=== PATIENT | female | born 1955 | race Caucasian/White ===

== ENCOUNTER 2017-12-19 19:05 | Emergency (ER) | payer OTHER ==
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
[2017-12-19 19:35] LABS: PLATELET COUNT, AUTOMATED 235 K/uL (150-450)
[2017-12-19 19:47] LABS: INR 1.06
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
[2017-12-19] MEDS ORDERED: fentaNYL CITR 100 MCG/2 ML AMP IVP ONE ×2 (20:35→21:25)
[2017-12-19 22:30] VITALS: BP 104/57
[2017-12-19] MEDS ORDERED: APAP/HYDROCODONE 325/10 TAB PO ONE (23:25)
[2017-12-19] MEDS ORDERED: KETOROLAC 30 MG/ML VIAL IVP ONE (23:50)
[2017-12-20] MEDS ORDERED: ACET/HYDROC 5/325MG TH ER ONLY 2 TAB/BOTTLE PO ONE (00:30)
[2017-12-20] MEDS ORDERED: KETOROLAC TROM 10 MG TAB TH PO ONE (00:30)
[2017-12-20] MEDS ORDERED: KET10 PO (00:30)
[2017-12-20] MEDS ORDERED: LOR5/325 PO (00:30)
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
== END 2017-12-20 00:52 | disposition home or self-care (01) ==
LOC: ER 19:22
DX: S62.353A Nondisplaced fracture of shaft of third metacarpal bone, left hand, initial encounter for closed fracture (principal); S62.355A Nondisplaced fracture of shaft of fourth metacarpal bone, left hand, initial encounter for closed fracture; S62.357A Nondisplaced fracture of shaft of fifth metacarpal bone, left hand, initial encounter for closed fracture; S32.010A Wedge compression fracture of first lumbar vertebra, initial encounter for closed fracture; S32.050A Wedge compression fracture of fifth lumbar vertebra, initial encounter for closed fracture; R07.89 Other chest pain; M54.6 Pain in thoracic spine; M50.30 Other cervical disc degeneration, unspecified cervical region
CPT/HCPCS: 29125; 71045; 72125; 72128; 72131; 72170; 72192; 73110; 73130; 85025; 85610; 85730; 93005; 96374; 96375; 96376; 99284; A4565; J1885; J3010; 82040; 82247; 82310; 82374; 82435; 82565; 82947; 84075; 84132; 84155; 84295; 84450; 84460; 84520

== ENCOUNTER → 2017-12-19 | Outpatient (CLI) | payer OTHER ==
[~2017-12-19] MED LIST: KET10 PO; LOR5/325 PO
== END ==
LOC: AMB 18:37
PROVIDERS: ATTEND Nurse Practitioner
DX: M54.5 Low back pain (principal); I95.9 Hypotension, unspecified; M20.009 Unspecified deformity of unspecified finger(s); R07.9 Chest pain, unspecified; V43.62XA Car passenger injured in collision with other type car in traffic accident, initial encounter; W22.19XA Striking against or struck by other automobile airbag, initial encounter; Y92.414 Local residential or business street as the place of occurrence of the external cause
CPT/HCPCS: A0425; A0427